=== PATIENT | male | born 1960 | race Caucasian/White ===

== ENCOUNTER → 2020-01-28 15:04 | Outpatient (BNVA) | payer MEDICARE, MEDICAID, SELFPAY | PROVIDERS: PCP Internal Medicine; Visit Provider Nurse Practitioner Psychiatric/Mental Health | DX: F11.20 Opioid dependence, uncomplicated (principal) | CPT/HCPCS: 99213 ==

== ENCOUNTER → 2020-02-26 15:02 | Outpatient (BNVA) | payer MEDICARE, MEDICAID, SELFPAY | PROVIDERS: Visit Provider Internal Medicine | DX: F11.11 Opioid abuse, in remission (principal) | CPT/HCPCS: 99211 ==

== ENCOUNTER → 2020-03-23 14:37 | Outpatient (BNVA) | payer MEDICARE, MEDICAID, SELFPAY | PROVIDERS: Visit Provider Internal Medicine | DX: F11.11 Opioid abuse, in remission (principal) | CPT/HCPCS: Q3014 ==

== ENCOUNTER → 2020-05-17 15:04 | Outpatient (BNVA) | payer MEDICARE, MEDICAID, SELFPAY | PROVIDERS: Visit Provider Internal Medicine | DX: Z13.89 Encounter for screening for other disorder (principal) | CPT/HCPCS: Q3014 ==

== ENCOUNTER → 2020-06-21 14:59 | Outpatient (BNVA) | payer MEDICARE, MEDICAID, SELFPAY | PROVIDERS: PCP Internal Medicine; Visit Provider Internal Medicine | DX: F11.11 Opioid abuse, in remission (principal) | CPT/HCPCS: Q3014 ==

== ENCOUNTER → 2020-07-19 14:48 | Outpatient (BNVA) | payer MEDICARE, MEDICAID, SELFPAY | PROVIDERS: PCP Internal Medicine; Visit Provider Internal Medicine | DX: F11.20 Opioid dependence, uncomplicated (principal); M54.9 Dorsalgia, unspecified | CPT/HCPCS: 80305; 99212 ==

== ENCOUNTER → 2020-08-17 13:14 | Outpatient (BNVA) | payer MEDICARE, MEDICAID, SELFPAY | PROVIDERS: Visit Provider Internal Medicine | DX: F11.11 Opioid abuse, in remission (principal); Z51.81 Encounter for therapeutic drug level monitoring; Z79.899 Other long term (current) drug therapy | CPT/HCPCS: 80305; 99212 ==

== ENCOUNTER → 2020-09-14 10:59 | Outpatient (BNVA) | payer MEDICARE, MEDICAID, SELFPAY | PROVIDERS: Visit Provider Internal Medicine | DX: F11.11 Opioid abuse, in remission (principal) | CPT/HCPCS: 80305; 99211 ==

== ENCOUNTER → 2020-10-12 14:12 | Outpatient (BNVA) | payer MEDICARE, MEDICAID, SELFPAY | PROVIDERS: Visit Provider Internal Medicine | DX: F11.11 Opioid abuse, in remission (principal); Z72.89 Other problems related to lifestyle | CPT/HCPCS: 80305; 99212 ==

== ENCOUNTER 2020-11-11 13:49 | Outpatient (REF) | payer MEDICARE, MEDICAID, SELFPAY | END 2020-11-11 13:50 | disposition home or self-care (01) | LOC: HO.LAB 13:49 | PROVIDERS: Visit Provider Internal Medicine | DX: F11.11 Opioid abuse, in remission (principal) | CPT/HCPCS: 80305; 80348; 99211 ==

== ENCOUNTER → 2021-01-06 13:03 | Outpatient (BNVA) | payer MEDICARE, MEDICAID, SELFPAY | PROVIDERS: Visit Provider Internal Medicine | DX: F11.11 Opioid abuse, in remission (principal); Z72.89 Other problems related to lifestyle | CPT/HCPCS: 80305; 99212 ==

== ENCOUNTER → 2021-03-03 13:10 | Outpatient (BNVA) | payer MEDICARE, MEDICAID, SELFPAY | PROVIDERS: Visit Provider Internal Medicine | DX: Z51.81 Encounter for therapeutic drug level monitoring (principal); Z72.89 Other problems related to lifestyle | CPT/HCPCS: 80305; 99212 ==

== ENCOUNTER → 2021-05-05 13:23 | Outpatient (BNVA) | payer MEDICARE, MEDICAID, SELFPAY | PROVIDERS: Visit Provider Internal Medicine | DX: F10.10 Alcohol abuse, uncomplicated (principal); Z72.89 Other problems related to lifestyle; Z51.81 Encounter for therapeutic drug level monitoring; Z79.899 Other long term (current) drug therapy | CPT/HCPCS: 80305; 99212 ==

== ENCOUNTER → 2021-06-30 14:01 | Outpatient (BNVA) | payer MEDICARE, MEDICAID, SELFPAY | PROVIDERS: Visit Provider Internal Medicine | DX: Z51.81 Encounter for therapeutic drug level monitoring (principal); F11.11 Opioid abuse, in remission; Z72.89 Other problems related to lifestyle | CPT/HCPCS: 99212 ==

== ENCOUNTER → 2021-08-25 15:38 | Outpatient (BNVA) | payer MEDICARE, MEDICAID, SELFPAY | PROVIDERS: Visit Provider Internal Medicine | DX: F11.20 Opioid dependence, uncomplicated (principal); Z72.89 Other problems related to lifestyle | CPT/HCPCS: 80305; 99212 ==

== ENCOUNTER → 2021-10-20 15:48 | Outpatient (BNVA) | payer MEDICARE, MEDICAID, SELFPAY | PROVIDERS: Visit Provider Internal Medicine | DX: F11.20 Opioid dependence, uncomplicated (principal) | CPT/HCPCS: 80305; 99212 ==

== ENCOUNTER → 2021-12-15 15:33 | Outpatient (BNVA) | payer MEDICARE, MEDICAID, SELFPAY | PROVIDERS: Visit Provider Internal Medicine | DX: Z51.81 Encounter for therapeutic drug level monitoring (principal); F11.11 Opioid abuse, in remission; Z72.89 Other problems related to lifestyle | CPT/HCPCS: 99212 ==

== ENCOUNTER → 2022-01-12 15:22 | Outpatient (BNVA) | payer MEDICARE, MEDICAID, SELFPAY | PROVIDERS: Visit Provider Internal Medicine | DX: F11.11 Opioid abuse, in remission (principal); Z72.89 Other problems related to lifestyle | CPT/HCPCS: 99212 ==

== ENCOUNTER → 2022-01-31 15:09 | Outpatient (BNVA) | payer MEDICARE, MEDICAID, SELFPAY | PROVIDERS: Visit Provider Internal Medicine | DX: Z51.81 Encounter for therapeutic drug level monitoring (principal); F11.11 Opioid abuse, in remission | CPT/HCPCS: 96372; 99212 ==

== ENCOUNTER → 2022-02-23 15:24 | Outpatient (BNVA) | payer MEDICARE, MEDICAID, SELFPAY | PROVIDERS: Visit Provider Internal Medicine | DX: Z51.81 Encounter for therapeutic drug level monitoring (principal); F11.11 Opioid abuse, in remission; Z72.89 Other problems related to lifestyle | CPT/HCPCS: 96372; 99212 ==